=== PATIENT | male | born 1950 | race Caucasian/White ===

== ENCOUNTER 2020-07-14 13:05 | Outpatient (CLI) | payer MEDICARE, OTHER, SELFPAY ==
--- NOTE | 2020-07-14 13:14 | CT_ITS ---
WS: [id number] CT ABDOMEN PELVIS TECHNIQUE: Contrast-enhanced CT of the abdomen and pelvis with coronal and sagittal reformatted image s. CLINICAL INFORMATION: WEIGHT LOSS, NAUSEA AND VOMITING, ABDOMINAL PAIN, LOWER COMPARISON: CT 4 27,019 DLP: 1066.[address] scans at [facility] use at least one of these dose optimization techniques: automat ed exposure control; mA and/or kV adjustment per patient size (includes targeted exams where dose is matched to clinical indication); or iterative reconstruction. FINDINGS: Mild diffuse fatty infiltration of the liver. Portal vein and splenic vein are patent. Normal gallbla dder. Normal spleen. Splenic granulomas. Small esophageal hiatal hernia. Lung bases are well aerated. Pancreas appears normal. Adrenal glands are normal. Normal renal parenchymal enhancement. Small left renal cyst measuring 3.0 CM. No obstructing renal or ureteral calculi. Adrenal glands are normal. No rmal caliber abdominal aorta. Sigmoid diverticulosis. Mild diffuse thickening of the sigmoid colon suspicious for mild diverticulit is. No significant inflammatory stranding. Recommend correlation for infection. No drainable abscess or fluid collection. Colon is otherwise unremarkable. Normal appendix. No free fluid in the abdomen o r pelvis. No pelvic or inguinal lymphadenopathy. CT/CT abdomen pelvis w con* [id number] IMPRESSION: 1. No evidence of obstructing renal or ureteral calculi. 2. 3.0 cm left renal cyst. 3. Normal caliber abdominal aorta. 4. Mild thickening of the sigmoid colon can be seen with mild or early diverti culitis. No significant inflammatory stranding. Recommend Correlation for infec tion. No drainable abscess or fluid collection. 5. Small and large bowel otherwise unremarkable.
[2020-07-14] MEDS: iohexol 300 mg/mL 50 mL Btl PO (14:59)
[2020-07-14] MEDS: iohexol 300 mg/mL 100 mL Btl IV (15:00)
== END 2020-07-14 13:06 | disposition home or self-care (01) ==
LOC: RADWPI 13:13
PROVIDERS: Family Provider Emergency Medicine; PCP Emergency Medicine; Visit Provider Nurse Practitioner Family
DX: R63.4 Abnormal weight loss (principal); M62.81 Muscle weakness (generalized); R10.30 Lower abdominal pain, unspecified; R11.2 Nausea with vomiting, unspecified; R53.83 Other fatigue
CPT/HCPCS: 74177; Q9967

== ENCOUNTER 2021-04-09 08:17 | Emergency (ER) | payer MEDICARE, OTHER, SELFPAY ==
[2021-04-09 08:24] VITALS: BP 159/79; PULSE 82; RESP 18; TEMP 36.4; O2SAT 94; BMI 25.5
--- NOTE | 2021-04-09 08:33 | USR_ITS ---
PROCEDURE INFORMATION: Exam: US Scrotum Exam date and time: 04/09/2021 8:45 AM Age: 70 years old Clinical indication: Groin pain and scrotum pain; Additional info: Bilateral testicle tenderness with lower pelvic pain TECHNIQUE: Imaging protocol: Real-time ultrasound of the scrotum and contents with color Doppler and image documentation. COMPARISON: CT abdomen pelvis w con* [id number] 07/14/2020 2:58 PM FINDINGS: Right testicle: 5.3 x 2.0 x 3.7 cm. No mass. No torsion. Normal vascular flow. The arterial resistive index is 0.62. Left testicle: 4.8 x 2.3 x 3.5 cm. No mass. No torsion. Normal vascular flow. The arterial resistive index is 0.54. Epididymides: Right epididymis 8.9 mm. 3.4 mm anechoic benign right epididymal cyst. Left epididymis 11.1 mm. 7.9 mm left epididymal cyst. Left scrotal wall 4.6 mm, right scrotal wall 5.0 mm. Scrotum: Small bilateral anechoic hydroceles, mobile low level echoes at relatively high gain settings. US/US scrotum [id number] IMPRESSION: Small bilateral scrotal hydroceles. Benign bilateral small epididymal cysts.
--- NOTE | 2021-04-09 08:36 | ED_ITS ---
HPI - Abdominal Pain General: Chief Complaint: Abdominal Pain Stated Complaint: LOWER ABD PAIN Time Seen by Provider: 04/09/21 08:20 History of Present Illness: HPI narrative: Patient is a 70-year-old male comes to the ED with abdominal pain. Patient has a past medical history of kidney stones and diverticulitis. Patient says pain in the abdomen started on Saturday. He saw his PCP on Saturday and he was prescribed Cipro and Flagyl. Patient realized today that he had not been taking his Cipro correctly. Patient has been taking one of the 250 mg tablets twice a day instead of taking 2 of the 250 mg tablets (500mg) twice a day. He has been taking antibiotics and pain has not improved. Pain in the abdomen is located in the lower pelvic region. He is also complaining of having some bilateral testicular tenderness. He rates his pain a 7 out of 10. Denies any fever, chills, nausea/vomiting, diarrhea, blood in the stool, hematuria. Patient says he does struggle with chronic constipation but says his last bowel movements have been normal and daily. Last bowel movement was a couple hours before arriving to the ED. He also complains of having some on and off again dysuria. Associated Symptoms: Reports dysuria; Denies chills, constipation, diarrhea, fever(s), hematochezia, hematuria, nausea and vomiting Review of Systems Const: Denies: fever(s), chills or fatigue Eyes: Denies: change in vision or eye discomfort ENMT: Denies: throat pain, odynophagia, nasal discharge or nasal congestion Card: Denies: chest pain, palpitations, edema, swelling of feet/ankles, dyspnea on exertion or orthopnea Resp: Denies: dyspnea, productive cough or non-productive cough GI: Reports: abdominal pain (Lower abdominal/pelvic pain.); Denies: nausea, vomiting, diarrhea, constipation or hematochezia : Reports: dysuria and testicular pain (Bilateral); Denies: flank pain, difficulty urinating, hematuria, testicular mass or scrotal swelling Musc: Denies: neck pain, back pain or extremity swelling Skin/Breast: Denies: rash or new lesions Neuro: Denies: headache(s), numbness in extremities or weakness in extremities Physical Exam Const: COMMON NORMALS: no acute distress, patient oriented x3, healthy appearing and alert GENERAL APPEARANCE: cooperative and comfortable HENMT: COMMON NORMALS: normocephalic HEAD & SCALP: normocephalic MOUTH: Normal oral and palatal mucosa present THROAT: posterior oropharynx normal and uvula midline Neck/C-Spine: COMMON NORMALS: supple GENERAL: Yes normal visual inspection Resp: COMMON NORMALS: normal respiratory effort, No retractions, No use of accessory muscles and clear to auscultation bilaterally AUSCULTATION: clear to auscultation bilaterally Cardio: COMMON NORMALS: regular rate, regular rhythm, S1 normal heart sound present, S2 normal heart sound present, No gallops present (Cardio), No clicks present (Cardio), No murmurs present (Cardio) and Peripheral pulses 2+ throughout RATE: regular rate RHYTHM: regular rhythm HEART SOUNDS: S1 normal heart sound present and S2 normal heart sound present PERIPHERAL PULSES: Peripheral pulses 2+ throughout GI: COMMON NORMALS: Normal to inspection, nondistended, normoactive bowel sounds present, Soft to palpation and no masses AUSCULTATION: Yes normoactive bowel sounds PALPATION: Yes Soft to palpation, Yes Tenderness to palpation present (GI) Details: other (Lower central abdominal/pelvic tenderness.) and Yes Bladder palpation abnormal OTHER: Patient has negative Aggarwal sign, McBurney's point or Rovsing sign. : COMMON NORMALS: Yes no CVA tenderness BLADDER/KIDNEY EXAM: Yes no CVA tenderness and Yes Bladder palpation abnormal Bladder abnormal details: tender SCROTUM: Yes Scrotal tenderness present (Bilateral testicular tenderness) Back/Pelvis: COMMON NORMALS: no CVA tenderness Extremity: COMMON NORMALS: normal to inspection and no pedal edema Neuro: COMMON NORMALS: patient oriented x3 SENSORIUM/ORIENTATION: Yes alert GAIT: Yes Normal gait present Skin: GENERAL SKIN EXAM: dry skin Course Vital Signs: Vital signs: Vital Signs Temperature 97.5 F L 04/09/21 08:24 Pulse Rate 74 04/09/21 11:25 Respiratory Rate 18 04/09/21 09:00 Blood Pressure 148/74 04/09/21 11:25 Pulse Oximetry 96 04/09/21 11:25 MDM - Abdominal Pain MDM Narrative: Medical decision making narrative: Patient is a 70-year-old male comes to the ED with left lower quadrant abdominal pain. Patient did state some pain that radiates down into his testes. patient has a past medical history of kidney stones and diverticulitis. Patient was seen by his PCP on Saturday and he was given a prescription for Cipro and Flagyl. Patient had been taking the prescriptions but found out today that he was not taking the Cipro correctly. Patient was only taking 1 250 mg tablet twice a day instead of taking 2 tablets twice a day. Denied fever, chills, nausea/vomiting, diarrhea, blood in stool. Patient is a 70-year-old male who appeared nontoxic and in no acute distress. He has some left lower quadrant abdominal pain and some bilateral testicular tenderness. Labs were unremarkable. Ultrasound of the scrotum showed small bilateral scrotal hydroceles and a benign bilateral small epididymal cysts. CT of abdomen pelvis showed mild uncomplicated diverticulitis with no abscess. Due to patient's mild clinical appearance of diverticulitis and is able to tolerate p.o. medications I discharged him home and told him to continue taking his Cipro and Flagyl and discussed with him how he needs to take the correct dose of Cipro which is 2 tablets twice a day. He was also discharged with hydrocodone 5/325 mg written prescription for 8 tablets and some Zofran. He was told to follow-up with his PCP in 7 days for reevaluation. Return to ED precautions given. Patient understood and agree with plan. Lab Data: Attestation: I reviewed the patient's lab results. Labs: Lab Results 04/09/21 04/09/21 04/09/21 Range/Units 08:59 08:59 10:01 WBC 9.6 (4.0-10.0) 10^3/ uL RBC 5.22 (4.1-5.3) 10^6/u L Hgb 15.8 (11.7-16.6) g/dL Hct 46.3 (42.0-52.0) % MCV 88.7 (80-94) fL MCH 30.3 (28.0-34.0) pg MCHC 34.1 (30.0-36.0) g/dL RDW 13.2 (12.1-15.1) % Plt Count 358 (130-400) 10^3/c mm MPV 8.8 (7.4-10.4) fL Neut % (Auto) 89.0 % Lymph % (Auto) 4.5 % Ada % (Auto) 5.6 % Eos % (Auto) 0.4 % Baso % (Auto) 0.2 % Neut # (Auto) 8.55 H (1.8-7.7) 10^3/u L Lymph # (Auto) 0.4 L (0.8-4.8) 10^3/u L Ada # (Auto) 0.5 (0.2-0.9) 10^3/u L Eos # (Auto) 0.0 (0.0-0.8) 10^3/u L Baso # (Auto) 0.0 (0.0-0.1) 10^3/u L Nucleated RBC % (a uto) 0 % Nucleated RBCs # 0.0 /100WBC Sodium 140 (136-145) mmol/L Potassium 4.2 (3.5-5.1) mmol/L Chloride 104 (98-107) mmol/L Carbon Dioxide 28 (22-29) mmol/L Anion Gap 12.2 (5-19) BUN 19 (8-23) mg/dL Creatinine 0.8 (0.7-1.2) mg/dL GFR Calculation 95.8 (90-130) mL/min Glucose 96 (65-115) mg/dL Calculated Osmolal ity 292 (285-295) mOsm/k g Calcium 9.4 (8.5-10.5) mg/dL Total Bilirubin 1.2 (0.15-1.2) mg/dL AST 17 (0-40) U/L ALT 15 (0-41) U/L Alkaline Phosphata se 66 (40-130) IU/L Total Protein 7.0 (6.6-8.7) g/dL Albumin 4.5 (3.5-5.2) g/dL Globulin 2.5 (1.3-4.6) g/dL Lipase 38 (13-60) U/L Urine Color Yellow (Yellow) Urine Appearance Clear (CLEAR) Urine pH 6 (5-7) Ur Specific Gravit y 1.015 (1.005-1.030) Urine Protein Neg (Negative) Urine Glucose (UA) Norm (Normal) Urine Ketones Negative (Negative) Urine Blood Trace H (Negative) Urine Nitrate Negative (Negative) Urine Bilirubin Neg (Negative) Urine Urobilinogen 1 H (Negative) mg/dL Ur Leukocyte Cyndy ase Negative (Negative) Urine RBC Rare (0-2) /hpf Urine WBC None (0-5) /hpf Ur Squamous Epith Cells None (0-5) /hpf Amorphous Sediment Not Reportable Urine Bacteria Trace (NONE) /hpf Imaging Data ^: US: Attestation: I personally reviewed and interpreted this imaging study as follows : Radiologist's impression: [address] [place] [address] Ultrasound Report Signed Patient: Cj Keita Unit #: [id number] : 1950 Age/Sex: 70 / M ADM Date: 04/09/21 Loc: ER Room/Bed: Attending Dr: Ordering Provider/Ordering MD: Gigi Galloway Date of Service: 04/09/21 Procedure(s): US scrotum [id number] Accession Number(s): [id number] Report Number: [id number] PROCEDURE INFORMATION: Exam: US Scrotum Exam date and time: 04/09/2021 8:45 AM Age: 70 years old Clinical indication: Groin pain and scrotum pain; Additional info: Bilateral testicle tenderness with lower pelvic pain TECHNIQUE: Imaging protocol: Real-time ultrasound of the scrotum and contents with color Doppler and image documentation. COMPARISON: CT abdomen pelvis w con* [id number] 07/14/2020 2:58 PM FINDINGS: Right testicle: 5.3 x 2.0 x 3.7 cm. No mass. No torsion. Normal vascular flow. The arterial resistive index is 0.62. Left testicle: 4.8 x 2.3 x 3.5 cm. No mass. No torsion. Normal vascular flow. The arterial resistive index is 0.54. Epididymides: Right epididymis 8.9 mm. 3.4 mm anechoic benign right epididymal cyst. Left epididymis 11.1 mm. 7.9 mm left epididymal cyst. Left scrotal wall 4.6 mm, right scrotal wall 5.0 mm. Scrotum: Small bilateral anechoic hydroceles, mobile low level echoes at relatively high gain settings. US/US scrotum [id number] IMPRESSION: Small bilateral scrotal hydroceles. Benign bilateral small epididymal cysts. Dictated By: Dale Rodney MD Signed By: Dale Rodney MD Signed Date/Time: 04/09/21945 DD/ 4 CT Abd/Pel: Attestation: I personally reviewed and interpreted this imaging study as follows: Radiologist's impression: [facility] [address] [place] [address] CT Scan Report Signed Patient: Cj Keita Unit #: [id number] : 1950 Age/Sex: 70 / M ADM Date: 04/09/21 Loc: ER Room/Bed: Attending Dr: Ordering Provider/Ordering MD: Gigi Galloway Date of Service: 04/09/21 Procedure(s): CT abdomen pelvis w con* [id number] Accession Number(s): [id number] Report Number: [id number] PROCEDURE INFORMATION: Exam: CT Abdomen And Pelvis With Contrast Exam date and time: 04/09/2021 9:48 AM Age: 70 years old Clinical indication: Abdominal pain; Localized; Lower; Additional info: Lower abdominal pain TECHNIQUE: Imaging protocol: Computed tomography of the abdomen and pelvis with contrast. Radiation optimization: All CT scans at this facility use at least one of these dose optimization techniques: automated exposure control; mA and/or kV adjustment per patient size (includes targeted exams where dose is matched to clinical indication); or iterative reconstruction. Contrast material: OMNIPAQUE 300; Contrast volume: 95 ml; Contrast route: INTRAVENOUS (IV); COMPARISON: CT abdomen pelvis w con* [id number] 07/14/2020 2:58 PM RADIATION DOSE METRICS: Total DLP (mGy-cm): 1296.69 FINDINGS: Lungs: Left lower lobe calcified pulmonary parenchymal granuloma. Liver: The liver demonstrates a few small granulomatous calcifications. Gallbladder and bile ducts: Normal. No calcified stones. No ductal dilation. Pancreas: Normal. No ductal dilation. Spleen: The spleen demonstrates several small calcifications consistent with healed granulomatous disease. Adrenal glands: Benign appearing left adrenal calcifications, stable. Kidneys and ureters: Right renal calculi (2), the largest in the medial lower pole measuring 1.7 mm. Left renal benign cysts, largest 3.5 cm. Stomach and bowel: Mild mural thickening of the lower sigmoid colon, with paracolonic diverticula and mild pericolonic soft tissue stranding and increased paracolic adipose attenuation. No evidence of perforation or abscess formation. Appendix: The vermiform appendix is normal. Intraperitoneal space: Unremarkable. No free air. No significant fluid collection. Vasculature: Mild aortic atherosclerotic calcification without aneurysm. The iliac arteries show mild bilateral atherosclerotic calcifications without evidence of aneurysm. Lymph nodes: No enlarged lymph nodes. Urinary bladder: Unremarkable as visualized. Reproductive: The prostate gland demonstrates nonspecific parenchymal calcifications. Bones/joints: Mild L2-L3 spondylosis. Bilateral mild lower lumbar facet primary osteoarthritis. Mild lower lumbar vertebral body marginal osteophytes. Small right inferior L4-L5 paracentral extruded disc herniation containing gas (series 601, image 39). Mild bilateral femoral head articular marginal osteophytes. Soft tissues: Unremarkable. CT/CT abdomen pelvis w con* [id number] IMPRESSION: 1. Findings consistent with mild uncomplicated sigmoid colonic diverticulitis. Clinical correlation is recommended. 2. Right renal calyceal lithiasis. 3. Left renal benign cysts. No follow-up imaging is recommended. 4. Benign appearing left adrenal calcifications, stable. 5. Small right inferior L4-L5 paracentral extruded disc herniation. 6. Chronic calcific prostatitis. COMMENTS: Consistent with the [employer]'s Incidental Findings Committee white paper (J Am Hattie Radiol 2018): Any incidental renal lesion less than 1 cm or classified as too small to characterize, or any incidental cystic renal lesion characterized as simple-appearing, is likely benign. No follow-up imaging is recommended for these lesions per consensus recommendations based on imaging criteria. Radiation Dose CTDIVOL = (mGy): DLP = 1296.69 (mGy-cm) Dictated By: Dale Rodney MD Signed By: Dale Rodney MD Signed Date/Time: 04/09/21 1026 DD/ 1025 Discharge Plan Discharge Patient Disposition: Home Clinical Impression: Diverticulitis Condition: Stable Prescriptions: New ondansetron 4 mg tablet,disintegrating 4 mg PO Q8H PRN (Reason: nausea and vomiting) Qty: 12 RF: 0 No Action cetirizine 10 mg tablet 10 mg PO DAILY PRN (Reason: Allergy Symptoms) RF: 0 meloxicam 15 mg tablet 15 mg PO DAILY PRN (Reason: arthritis pain) RF: 0 metronidazole 500 mg tablet 500 mg PO BID RF: 0 ciprofloxacin HCl 250 mg tablet 250 mg PO BID RF: 0 ibuprofen 200 mg Tablet 400 mg PO PRN RF: 0 Discharge Orders: Discharge ED (Routine); Ordered 04/09/21 Ordered By: Gigi Galloway Referrals: Ruth Ann Burns [Primary Care Provider] - Discharge Diet: Regular Discharge Activity: Increase activity as tolerated Patient Instructions: Diverticulitis (ED), Diverticulitis Diet (ED), Opioid Safety Activity Restrictions/Additional Instructions: Follow-up with medical provider as directed in 5 to 7 days for reevaluation. Take medications as prescribed. Make sure to take all your antibiotic as previously prescribed. Return to the ER or your medical provider if condition worsens. Please read and understand discharge instructions. Thank you for choosing [facility] for your healthcare needs today. Marily chapman realize this is an emergency room and that we are providing you with a medical screening exam and this may not be complete and all inclusive of all the testing and or work up that you may need to determine your ailment or severity of your illness. It is very important that you follow up as instructed or that you return to the Emergency Department should you have concerns or if your condition changes or worsens in any way. Coding Level of Care Code ED Cut Out Marker for Bailey Fwsuzy Exam Comprehensive
[2021-04-09] MEDS: morphine 4 mg/mL SDV 1 mL IVP ×2 (08:57→09:00)
[2021-04-09] MEDS: ondansetron 2 mg/ML SDV 2 mL 4 MG IVP (08:57)
[2021-04-09] MEDS: sodium chloride 0.9% 500 ML 999 ML IV (08:58)
[2021-04-09 09:00] VITALS: RESP 18; O2SAT 98
[2021-04-09 09:12] LABS: Basophils % 0.2 %; Eosinophils % 0.4 %; Hematocrit 46.3 % (42.0-52.0); Hemoglobin 15.8 g/dL (11.7-16.6); Lymphocytes # 0.4 10^3/uL (0.8-4.8); Lymphocytes % 4.5 %; Mean Corpuscular HGB Conc 34.1 g/dL (30.0-36.0); Mean Corpuscular Hemoglobin 30.3 pg (28.0-34.0); Mean Corpuscular Volume 88.7 fL (80-94); Mean Platelet Volume 8.8 fL (7.4-10.4); Monocytes # 0.5 10^3/uL (0.2-0.9); Monocytes % 5.6 %; Neutrophils # 8.55 10^3/uL (1.8-7.7); Nucleated Red Blood Cells % 0 %; Platelet Count 358 10^3/cmm (130-400); Red Blood Count 5.22 10^6/uL (4.1-5.3); Red Cell Distribution Width 13.2 % (12.1-15.1); White Blood Count 9.6 10^3/uL (4.0-10.0)
[2021-04-09 09:35] LABS: Alanine Aminotransferase 15 U/L (0-41); Albumin Level 4.5 g/dL (3.5-5.2); Alkaline Phosphatase 66 IU/L (40-130); Anion Gap 12.2 (5-19); Aspartate Amino Transferase 17 U/L (0-40); Blood Urea Nitrogen 19 mg/dL (8-23); Calcium 9.4 mg/dL (8.5-10.5); Carbon Dioxide 28 mmol/L (22-29); Chloride 104 mmol/L (98-107); Globulin 2.5 g/dL (1.3-4.6); Glomerular Filtration Rate 95.8 mL/min (90-130); Glucose 96 mg/dL (65-115); Lipase 38 U/L (13-60); Osmolality Calculated 292 mOsm/kg (285-295); Potassium 4.2 mmol/L (3.5-5.1); Sodium 140 mmol/L (136-145); Total Bilirubin 1.2 mg/dL (0.15-1.2)
--- NOTE | 2021-04-09 09:43 | CTR_ITS ---
PROCEDURE INFORMATION: Exam: CT Abdomen And Pelvis With Contrast Exam date and time: 04/09/2021 9:48 AM Age: 70 years old Clinical indication: Abdominal pain; Localized; Lower; Additional info: Lower abdominal pain TECHNIQUE: Imaging protocol: Computed tomography of the abdomen and pelvis with contrast. Radiation optimization: All CT scans at this facility use at least one of these dose optimization techniques: automated exposure control; mA and/or kV adjustment per patient size (includes targeted exams where dose is matched to clinical indication); or iterative reconstruction. Contrast material: OMNIPAQUE 300; Contrast volume: 95 ml; Contrast route: INTRAVENOUS (IV); COMPARISON: CT abdomen pelvis w con* [id number] 07/14/2020 2:58 PM RADIATION DOSE METRICS: Total DLP (mGy-cm): 1296.69 FINDINGS: Lungs: Left lower lobe calcified pulmonary parenchymal granuloma. Liver: The liver demonstrates a few small granulomatous calcifications. Gallbladder and bile ducts: Normal. No calcified stones. No ductal dilation. Pancreas: Normal. No ductal dilation. Spleen: The spleen demonstrates several small calcifications consistent with healed granulomatous disease. Adrenal glands: Benign appearing left adrenal calcifications, stable. Kidneys and ureters: Right renal calculi (2), the largest in the medial lower pole measuring 1.7 mm. Left renal benign cysts, largest 3.5 cm. Stomach and bowel: Mild mural thickening of the lower sigmoid colon, with paracolonic diverticula and mild pericolonic soft tissue stranding and increased paracolic adipose attenuation. No evidence of perforation or abscess formation. Appendix: The vermiform appendix is normal. Intraperitoneal space: Unremarkable. No free air. No significant fluid collection. Vasculature: Mild aortic atherosclerotic calcification without aneurysm. The iliac arteries show mild bilateral atherosclerotic calcifications without evidence of aneurysm. Lymph nodes: No enlarged lymph nodes. Urinary bladder: Unremarkable as visualized. Reproductive: The prostate gland demonstrates nonspecific parenchymal calcifications. Bones/joints: Mild L2-L3 spondylosis. Bilateral mild lower lumbar facet primary osteoarthritis. Mild lower lumbar vertebral body marginal osteophytes. Small right inferior L4-L5 paracentral extruded disc herniation containing gas (series 601, image 39). Mild bilateral femoral head articular marginal osteophytes. Soft tissues: Unremarkable. CT/CT abdomen pelvis w con* [id number] IMPRESSION: 1. Findings consistent with mild uncomplicated sigmoid colonic diverticulitis. Clinical correlation is recommended. 2. Right renal calyceal lithiasis. 3. Left renal benign cysts. No follow-up imaging is recommended. 4. Benign appearing left adrenal calcifications, stable. 5. Small right inferior L4-L5 paracentral extruded disc herniation. 6. Chronic calcific prostatitis. COMMENTS: Consistent with the [employer]'s Incidental Findings Committee white paper (J Am Hattie Radiol 2018): Any incidental renal lesion less than 1 cm or classified as too small to characterize, or any incidental cystic renal lesion characterized as simple-appearing, is likely benign. No follow-up imaging is recommended for these lesions per consensus recommendations based on imaging criteria. Radiation Dose CTDIVOL = (mGy): DLP = 1296.69 (mGy-cm)
[2021-04-09] MEDS: iohexol 300 mg/mL 100 mL Btl IV (10:04)
[2021-04-09 10:31] LABS: Bilirubin Urine Neg (Negative); Blood Urine Trace (Negative); Glucose Urine UA Norm (Normal); Ketones Urine Negative (Negative); Nitrate Urine Negative (Negative); Protein Urine Neg (Negative); Specific Gravity, Urine 1.015 (1.005-1.030); Urine Appearance Clear (CLEAR); Urine Color Yellow (Yellow); pH Urine 6 (5-7)
[2021-04-09 10:32] LABS: Add Urine Culture? No; Bacteria Urine TRACE /hpf; Leukocyte Esterase Urine Negative (Negative); RBC Urine RARE /hpf (0-2); Urobilinogen Urine 1 mg/dL (Negative)
[2021-04-09] MEDS: HYDROcodone-acetaminophen 7.5-325 mg Tablet 1 TAB PO (11:23)
[2021-04-09 11:25] VITALS: BP 148/74; PULSE 74; O2SAT 96
== END 2021-04-09 11:28 | disposition home or self-care (01) ==
PROVIDERS: Emergency Provider Physician Assistant; PCP Nurse Practitioner Family
DX: K57.92 Diverticulitis of intestine, part unspecified, without perforation or abscess without bleeding (principal)
CPT/HCPCS: 74177; 76870; 80053; 81001; 83690; 85025; 96374; 96375; 99284; J2270; J2405; J7040; Q9967

== ENCOUNTER 2021-05-29 06:04 | Emergency (ER) | payer MEDICARE, OTHER, SELFPAY ==
--- NOTE | 2021-05-29 06:13 | XRR_ITS ---
PROCEDURE INFORMATION: Exam: XR Chest Exam date and time: 05/29/2021 6:13 AM Age: 71 years old Clinical indication: Cough and other: Covid +; Patient HX: C/O cough and dyspnea; Covid +; Additional info: Dyspnea/cough TECHNIQUE: Imaging protocol: XR of the chest. Views: 1 view. COMPARISON: CT abdomen pelvis w con* [id number] 04/09/2021 10:00 AM FINDINGS: Lungs: Unremarkable. No consolidation. Pleural spaces: Unremarkable. No pleural effusion. No pneumothorax. Heart/Mediastinum: Unremarkable. No cardiomegaly. Bones/joints: Unremarkable. XR/XR chest 1V portable [id number] IMPRESSION: No acute findings.
[2021-05-29 06:27] VITALS: BP 122/73; PULSE 90; RESP 17; TEMP 36.9; O2SAT 95; BMI 25.0
[2021-05-29 07:32] VITALS: RESP 15
--- NOTE | 2021-05-29 07:45 | W.ED.COVID ---
HPI - COVID General: Chief Complaint: COVID symptoms Stated Complaint: covid+ Time Seen by Provider: 05/29/21 06:12 Triage information: Has fever, cough or shortness of breath. No known COVID + exposure last 14 days History of Present Illness: HPI Narrative: 71-year-old male presents emergency room with complaints of a code being Covid positive. He has had a cough congestion myalgias sinus congestion for the last 5 days. When his symptoms began he got home Covid test which returned positive. He had also recently been treated for diverticulitis he is off of the antibiotics now and states he feels somewhat better. Said low-grade fever as well. He feels somewhat short of breath with activity but at rest he is fine. MD complaint: has COVID symptoms Prior covid testing: yes, results known (Patient reports positive home Covid test. Suspect it is an antigen test but I am uncertain) Prior testing date: 05/24/21 COVID 19 common symptoms: positive fever(s), chills, cough, non-productive cough, dyspnea, fatigue, body aches, headache(s), nasal congestion and nausea COVID 19 other sytmptoms: negative chest pain Onset (ago): day(s) (5) Severity: mild Treatment prior to arrival: none COVID Results: SARS-CoV-2 Antigen (Rapid) Positive (Negative) H 05/29/21 07:41 05/29/21 Nasal/Oral Coronavirus 2019 PCR Detected H 05/29/21 07:41 05/29/21 Review of Systems Const: Reports: fever(s), chills, body aches and fatigue ENMT: Reports: nasal congestion Card: Denies: chest pain, edema, dyspnea on exertion or orthopnea Resp: Reports: dyspnea and non-productive cough GI: Reports: nausea : Denies: flank pain, dysuria, urinary frequency or urinary urgency Skin/Breast: Denies: rash or pruritus Neuro: Reports: headache(s) Physical Exam Const: COMMON NORMALS: no acute distress GENERAL APPEARANCE: cooperative and comfortable ORIENTATION/CONSCIOUSNESS: Yes awake, Yes oriented to person, Yes oriented to place and Yes oriented to time HENMT: COMMON NORMALS: normocephalic, atraumatic and hearing grossly normal bilaterally HEAD & SCALP: normocephalic and atraumatic Neck/C-Spine: COMMON NORMALS: no JVD Resp: COMMON NORMALS: normal respiratory effort, No retractions, No use of accessory muscles and clear to auscultation bilaterally AUSCULTATION: clear to auscultation bilaterally Cardio: COMMON NORMALS: no JVD, regular rate, regular rhythm and No murmurs present (Cardio) RATE: regular rate RHYTHM: regular rhythm GI: COMMON NORMALS: Soft to palpation and No hepatosplenomegaly present AUSCULTATION: Yes normoactive bowel sounds PALPATION: Yes Soft to palpation, No Tenderness to palpation present (GI), No Guarding due to palpation present (GI) and Yes No hepatosplenomegaly present Extremity: COMMON NORMALS: normal to inspection, capillary refill normal, no clubbing, cyanosis or edema, no calf tenderness and no pedal edema Neuro: SENSORIUM/ORIENTATION: Yes oriented to person, Yes oriented to place and Yes oriented to time Skin: COMMON NORMALS: no rashes or lesions noted GENERAL SKIN EXAM: no rashes or lesions noted Course Vital Signs: Vital signs: Vital Signs Temperature 98.5 F 05/29/21 06:27 Pulse Rate 90 05/29/21 06:27 Respiratory Rate 15 05/29/21 07:32 Blood Pressure 122/73 05/29/21 06:27 Pulse Oximetry 96 05/29/21 08:22 MDM - COVID Lab Data: Labs: Lab Results 05/29/21 05/29/21 Range/Units 07:41 07:41 Nasal/Oral COVID-1 9 PCR Detected H SARS-CoV-2 Ag (Rap id) Positive H (Negative) COVID Results: SARS-CoV-2 Antigen (Rapid) Positive (Negative) H 05/29/21 07:41 05/29/21 Nasal/Oral Coronavirus 2019 PCR Detected H 05/29/21 07:41 05/29/21 Discharge Plan Discharge Patient Disposition: Home Clinical Impression: COVID-19 Condition: Stable Prescriptions: No Action cetirizine 10 mg tablet 10 mg PO DAILY PRN (Reason: Allergy Symptoms) RF: 0 meloxicam 15 mg tablet 15 mg PO DAILY PRN (Reason: arthritis pain) RF: 0 metronidazole 500 mg tablet 500 mg PO BID RF: 0 ciprofloxacin HCl 250 mg tablet 250 mg PO BID RF: 0 ibuprofen 200 mg Tablet 400 mg PO PRN RF: 0 ondansetron 4 mg tablet,disintegrating 4 mg PO Q8H PRN (Reason: nausea and vomiting) Qty: 12 RF: 0 Discharge Orders: Discharge ED (Routine); Ordered 05/29/21 Ordered By: Jah Reed Referrals: Ruth Ann Burns [Primary Care Provider] - Patient Instructions: Opioid Safety Activity Restrictions/Additional Instructions: Follow-up with your primary care doctor. Return to emergency room if you have worsening of symptoms especially severe shortness of breath Coding Level of Care Code ED Solution Make Up Operator for Chg Fwd Exam Comprehensive
[2021-05-29 08:00] VITALS: O2SAT 96
[2021-05-29 08:22] VITALS: O2SAT 96
[2021-05-29 09:03] LABS: SARS Covid-2 Antigen Positive (Negative)
[2021-05-29 13:59] LABS: Coronavirus Test Green County Detected
== END 2021-05-29 08:22 | disposition home or self-care (01) ==
PROVIDERS: Emergency Provider Family Medicine; PCP Nurse Practitioner Family
DX: U07.1 COVID-19 (principal)
CPT/HCPCS: 71045; 87426; 87635; 99282

== ENCOUNTER 2021-05-30 05:53 | Outpatient (CLI) | payer MEDICARE, OTHER, SELFPAY ==
--- NOTE | 2021-05-30 06:34 | AMB.MCA ---
Patient Information Symptom onset date: 05/24/21 COVID 19 common symptoms: positive fever(s), chills, cough, non-productive cough, fatigue, body aches, headache(s), throat pain, nasal congestion, nausea and diarrhea COVID 19 other sytmptoms: negative requiring oxygen Severity: mild Treatment prior to arrival: none [facility] COVID test results: SARS-CoV-2 Antigen (Rapid) Positive (Negative) H 05/29/21 07:41 05/29/21 Nasal/Oral Coronavirus 2019 PCR Detected H 05/29/21 07:41 05/29/21 Criteria/Plan Inclusion/Exclusion Criteria weight >/= 40kg age >/= 65 not requiring hospitalization, not requiring oxygen (if not chronically on oxygen) and no increase oxygen requirement (if chronically on oxygen) Patient education patient/family/caregiver received/reviewed fact sheet, Emergency Use Authorization/unapproved drug status discussed with patient/family/caregiver, alternatives to this treatment discussed with patient/family/caregiver, risks and benefits of medication reviewed with patient/family/caregiver, patient/family/caregiver given opportunity for questions, which were answered and patient consents to receiving Monoclonal Antibody Treatment Plan for treatment Meets criteria for Monoclonal Antibody infusion Ordering Monoclonal Antibody infusion for today
[2021-05-30 06:44] VITALS: BP 134/73; PULSE 94; RESP 16; TEMP 37.2; O2SAT 95; BMI 25.0
[2021-05-30 07:55] VITALS: BP 136/65; PULSE 81; O2SAT 95
[2021-05-30 07:56] VITALS: BP 126/73; PULSE 56; O2SAT 94
[2021-05-30 09:03] VITALS: BP 113/81; PULSE 84; PULSE 94; TEMP 37.1; O2SAT 94
[2021-05-30 09:17] VITALS: BP 123/68; PULSE 73; TEMP 37.2; O2SAT 93
== END 2021-05-30 09:04 | disposition home or self-care (01) ==
LOC: ER 05:55
PROVIDERS: PCP Nurse Practitioner Family; Visit Provider Family Medicine
DX: U07.1 COVID-19 (principal)
CPT/HCPCS: 96365

== ENCOUNTER 2021-07-28 11:17 | Outpatient (CLI) | payer MEDICARE, OTHER, SELFPAY ==
--- NOTE | 2021-07-28 11:28 | CT_ITS ---
WS: [id number] CT ABDOMEN PELVIS TECHNIQUE: Contrast-enhanced CT of the abdomen and pelvis with coronal and sagittal reformatted image s. CLINICAL INFORMATION: FLANK PAIN COMPARISON: CT April 09, 2021 DLP: 1106.[address] scans at [facility] use at least one of these dose optimization techniques: automated e xposure control; mA and/or kV adjustment per patient size (includes targeted exams where dose is matc hed to clinical indication); or iterative reconstruction. FINDINGS: Mild thickening with inflammatory stranding and induration involving the sigmoid colon consistent wit h acute diverticulitis. This is similar in appearance to the prior examination. No evidence of draina ble abscess or fluid collection. No evidence of high-grade small or large bowel obstruction. Transver se colon constipation. Diffuse fatty infiltration of the liver. Normal portal vein and splenic vein. Normal pancreas. Normal spleen. Splenic granulomas. Normal GE junction. Adrenal glands are normal. Normal renal parenchymal enhancement. No hydronephrosis. Stable left renal cyst measuring 3.0 x 3.4 cm. Normal caliber abdominal aorta. No abdominal or pelvic lymphadenopathy. No inguinal lymphadenopathy. Tiny amount of hazy ground glass infiltrate in the right lower lobe and lingula. Disc space narrowing throughout the lumbar spine with vacuum disc phenomenon. CT/CT abdomen pelvis w con* [id number] IMPRESSION: 1. Mild acute sigmoid diverticulitis similar in appearance to the prior examin ation. No evidence of drainable abscess or fluid collection. 2. Transverse colon constipation. 3. Left renal cyst measuring 3.4 x 3.0 CM unchanged from previous. 4. Diffuse fatty infiltration of the liver. 5. Enlarged prostate measuring 4.3 CM. Recommend correlation PSA. 6. Tiny amount of hazy ground glass infiltrate in the right lower lobe and tiffany gula. Correlation for pneumonitis. 7. Enlarged prostate. Recommend correlation PSA.
[2021-07-28] MEDS: iohexol 300 mg/mL 50 mL Btl PO (11:45)
[2021-07-28 13:29] LABS: Blood Urea Nitrogen 21 mg/dL (8-23); Glomerular Filtration Rate 54.6 mL/min (90-130)
[2021-07-28] MEDS: iodixanol 320 mg/mL 100mL Btl IV (13:35)
== END 2021-07-28 11:18 | disposition home or self-care (01) ==
PROVIDERS: PCP Family Medicine; Visit Provider Family Medicine
DX: R10.9 Unspecified abdominal pain (principal); N40.0 Benign prostatic hyperplasia without lower urinary tract symptoms; R91.8 Other nonspecific abnormal finding of lung field; K76.0 Fatty (change of) liver, not elsewhere classified; N28.1 Cyst of kidney, acquired; K59.09 Other constipation; K57.32 Diverticulitis of large intestine without perforation or abscess without bleeding
CPT/HCPCS: 74177; 82565; 84520; Q9967

== ENCOUNTER 2023-11-19 06:51 | Outpatient (CLI) | payer MEDICARE, OTHER, SELFPAY ==
--- NOTE | 2023-11-19 07:16 | US_ITS ---
WS: [id number] RIGHT UPPER QUADRANT ULTRASOUND HISTORY: UPPER ABDOMINAL PAIN,UNSPECIFIED COMPARISON: CT 07/28/2021 Liver: 11.3 cm in length. Normal size liver and echogenicity. No bile duct dilatation or mass. Minima l fatty sparing adjacent to the gallbladder. Portal Vein: Normal hepatopetal flow with monophasic waveform. Gallbladder: Normally distended gallbladder with no stones or wall thickening. CBD: 0.4 cm Pancreas: Normal size and echogenicity. Right kidney: 11.0 cm in length. Normal size and echogenicity. No hydronephrosis or mass. Aorta and IVC: Unremarkable abdominal aorta and IVC. No ascites. IMPRESSION: 1. Negative gallbladder. 2. Normal size liver with minimal fatty sparing adjacent to the gallbladder.
== END 2023-11-19 06:52 | disposition home or self-care (01) ==
LOC: RAD 06:53
PROVIDERS: PCP Family Medicine; Visit Provider Nurse Practitioner Family
DX: R10.10 Upper abdominal pain, unspecified (principal)
CPT/HCPCS: 76705